=== PATIENT | male | born 1940 | race Caucasian/White ===

== ENCOUNTER 2019-02-15 11:02 | Inpatient (IN) | payer MEDICARE ==
[~2019-02-15] VITALS: Ht 180.3 cm; Wt 70.4 kg
[~2019-02-15 11:02] MED LIST: ASPI81TA52 PO; ATOR80TA PO; CALC1CAP13 PO; CHOL2000 PO; LOP25T PO; MULT-785 PO; OMEP-84 PO
[2019-02-15 11:47] LABS: BASOPHILS # (AUTO) 0.1 X10'3 (0-0.2); BASOPHILS % (AUTO) 0.7 % (0-1); EOSINOPHILS # (AUTO) 0.1 X10'3 (0-0.9); EOSINOPHILS % (AUTO) 1.6 % (0-6); HEMATOCRIT 51.5 % (42.0-52.0); HEMOGLOBIN 17.6 g/dl (14.0-17.9); LYMPHOCYTES # (AUTO) 2.2 X10'3 (1.1-4.8); LYMPHOCYTES % (AUTO) 23.4 % (21-51); MEAN CORPUSCULAR HEMOGLOBIN 32.6 PG (27.0-31.0); MEAN CORPUSCULAR HGB CONC 34.3 g/dL (33.0-36.5); MEAN CORPUSCULAR VOLUME 95.2 FL (78-98); MEAN PLATELET VOLUME 9.6 FL (7.4-10.4); MONOCYTES # (AUTO) 0.9 X10'3 (0-0.9); MONOCYTES % (AUTO) 9.5 % (2-12); NEUTROPHILS % (AUTO) 64.8 % (42-75); PLATELET COUNT 252 X10'3 (140-440); RED BLOOD COUNT 5.41 X10'6 (4.70-6.10); RED CELL DISTRIBUTION WIDTH 13.3 % (11.5-14.5); WHITE BLOOD COUNT 9.3 X10'3 (4.5-11.0)
[2019-02-15 11:57] LABS: ALANINE AMINOTRANSFERASE 26 U/L (12-78); ALBUMIN/GLOBULIN RATIO 1.1 (1.1-1.5); ALKALINE PHOSPHATASE 56 IU/L (46-116); ANION GAP 7 (8-16); ASPARTATE AMINO TRANSFERASE 23 U/L (10-37); BILIRUBIN,TOTAL 0.6 MG/DL (0.1-1.0); BLOOD UREA NITROGEN 9 MG/DL (7-18); BUN/CREATININE RATIO 7.3 (5.4-32.0); CALCIUM 9.5 MG/DL (8.5-10.1); CHLORIDE 106 MMOL/L (99-107); CREATININE 1.23 MG/DL (0.60-1.10); GLUCOSE 105 MG/DL (70-104); PARTIAL THROMBOPLASTIN TIME 31 SECONDS (22-32); POTASSIUM 4.3 MMOL/L (3.5-5.1); SODIUM 141 MMOL/L (135-145); TOTAL CARBON DIOXIDE 27.9 MMOL/L (24-32); TOTAL PROTEIN 7.7 G/DL (6.4-8.2); eGFR 57 ML/MIN
[2019-02-15] MEDS ORDERED: nitroGLYCERIN 0.4mg/hour patch TD ONE (12:50)
[2019-02-15] MEDS ORDERED: aspirin 81mg tab.chew PO ONE (12:50)
[2019-02-15] MEDS ORDERED: CYCL-1 PO (13:43)
[2019-02-15] MEDS ORDERED: CLOP75TA15 PO (13:43)
[2019-02-15] MEDS ORDERED: UBIQ100C3 PO (13:43)
[2019-02-15] MEDS ORDERED: FENO145T36 PO (13:43)
[2019-02-15] MEDS ORDERED: LISI2.5T2 PO (13:43)
--- NOTE | 2019-02-15 14:02 | NUR ---
call pt daughter at this no [phone] when pt has room assignment.
[2019-02-15] MEDS ORDERED: cyclobenzaprine 10mg tablet PO PRN (14:05)
[2019-02-15] MEDS: normal saline 1000ml 1,000 ML IV SCH (14:07)
[2019-02-15] MEDS ORDERED: aminophylline 250mg/10ml inj. IV PRN (14:10)
[2019-02-15] MEDS: K and/or MAG REPLACEMENT MC SCH (14:10)
[2019-02-15] MEDS ORDERED: magnesium hydroxide 30ml (MOM) UD suspension PO PRN (14:10)
[2019-02-15] MEDS ORDERED: potassium Cl 20 mEq SR tablet PO PRN ×2 (14:10)
[2019-02-15] MEDS ORDERED: diphenhydrAMINE 25mg capsule PO PRN (14:10)
[2019-02-15] MEDS ORDERED: acetaminophen 325mg tablet PO PRN ×2 (14:10)
[2019-02-15] MEDS ORDERED: magnesium 2GM in 50ml NS 50 ML IV PRN (14:10)
[2019-02-15] MEDS ORDERED: metoprolol tartrate 1mg/ml inj IV PRN (14:10)
[2019-02-15] MEDS ORDERED: morphine 2 MG/ML inj. syringe IV PRN ×2 (14:10)
[2019-02-15] MEDS ORDERED: nitroGLYCERIN 0.4mg SUBLingual tab SL PRN (14:10)
[2019-02-15] MEDS ORDERED: potassium CL 10mEq/100ml bag 100 ML IV PRN ×2 (14:10)
[2019-02-15] MEDS ORDERED: ondansetron/PF 4mg/2ml inj IV PRN (14:10)
[2019-02-15] MEDS ORDERED: HYDROcodone/acetaminophen 5mg/325mg tablet PO PRN (14:10)
[2019-02-15] MEDS ORDERED: HYDROcodone/acetaminophen 10/325mg tab PO PRN (14:10)
[2019-02-15] MEDS ORDERED: regadenoson 0.4mg/5ml syringe IV PRN (14:10)
[2019-02-15] MEDS ORDERED: mag hydrox/Alum hydrox/simeth 30ml oral suspension PO PRN (14:10)
[2019-02-15] MEDS ORDERED: bisacodyl 10mg suppository rectal RC PRN (14:10)
[2019-02-15] MEDS ORDERED: magnesium 4gm in 100ml NS 100 ML IV PRN (14:10)
[2019-02-15] MEDS ORDERED: magnesium Cl slow-release 64mg tablet PO PRN (14:10)
[2019-02-15 14:35] LABS: CLARITY,URINE CLEAR (Clear); COLOR,URINE YELLOW (Yellow); GLUCOSE, URINE NEGATIVE (Neg); KETONES,URINE NEGATIVE (Neg); LEUKOCYTE ESTERASE ,URINE NEGATIVE (Neg); NITRITES, URINE NEGATIVE (Neg); OCCULT BLOOD,URINE NEGATIVE (Neg); PROTEIN,URINE NEGATIVE (Neg); UROBILINOGEN,URINE 0.2 E.U/dL (0.2-1.0)
[2019-02-15 14:49] LABS: UA COLLECTION TYPE VOIDED
[2019-02-15 16:29] LABS: HEMOGLOBIN A1C 5.1 % (4.5-6.2)
[2019-02-15 17:15] VITALS: BP 126/71
--- NOTE | 2019-02-15 17:15 | NUR ---
Received report from Anna ALVARADO and patient admitted to [facility] [place]. Patient oriented to room and call light, 2 RN skin assessment done, vital signs taken. Patient is stable and has no complaints. Tele monitor initiated.
--- NOTE | 2019-02-15 18:33 | NUR ---
Problems reprioritized. Patient report given, questions answered & plan of care reviewed with Jose Roberto ALVARADO.
--- NOTE | 2019-02-15 18:44 | NUR ---
Patient in room PCU 3023. I have received report from Keysha ALVARADO and had the opportunity to ask questions and assume patient care.
[2019-02-15] MEDS: metoprolol tartrate 25mg tablet PO SCH (20:00)
[2019-02-15] MEDS: vitamin D (cholecalciferol) 1,000 unit tablet PO SCH (20:27)
[2019-02-15] MEDS: heparin, porcine 5000 units/ml vial SQ SCH (20:33)
[2019-02-15] MEDS ORDERED: atorvastatin 20mg tablet PO SCH (21:00)
[2019-02-15] MEDS ORDERED: temazepam 15mg capsule PO PRN (21:00)
[2019-02-15 22:00] VITALS: BP 121/86
[2019-02-16] VITALS (9 sets, daily range): BP systolic 130–150; BP diastolic 53–73
[2019-02-16] MEDS: normal saline 1000ml 1,000 ML IV SCH ×2 (02:29→10:07)
[2019-02-16 04:56] LABS: BASOPHILS % (AUTO) 0.4 % (0-1); EOSINOPHILS # (AUTO) 0.3 X10'3 (0-0.9); EOSINOPHILS % (AUTO) 2.7 % (0-6); HEMATOCRIT 42.3 % (42.0-52.0); HEMOGLOBIN 14.6 g/dl (14.0-17.9); LYMPHOCYTES # (AUTO) 2.7 X10'3 (1.1-4.8); LYMPHOCYTES % (AUTO) 28.3 % (21-51); MEAN CORPUSCULAR HEMOGLOBIN 33.4 PG (27.0-31.0); MEAN CORPUSCULAR HGB CONC 34.5 g/dL (33.0-36.5); MEAN CORPUSCULAR VOLUME 96.8 FL (78-98); MEAN PLATELET VOLUME 10.1 FL (7.4-10.4); MONOCYTES # (AUTO) 0.9 X10'3 (0-0.9); MONOCYTES % (AUTO) 9.8 % (2-12); NEUTROPHILS # (AUTO) 5.6 X10'3 (1.8-7.7); NEUTROPHILS % (AUTO) 58.8 % (42-75); PLATELET COUNT 176 X10'3 (140-440); RED BLOOD COUNT 4.37 X10'6 (4.70-6.10); WHITE BLOOD COUNT 9.5 X10'3 (4.5-11.0)
[2019-02-16 05:04] LABS: ANION GAP 6 (8-16); BILIRUBIN,TOTAL 0.4 MG/DL (0.1-1.0); BLOOD UREA NITROGEN 10 MG/DL (7-18); BUN/CREATININE RATIO 7.8 (5.4-32.0); CALCIUM 8.2 MG/DL (8.5-10.1); CHLORIDE 108 MMOL/L (99-107); CREATININE 1.28 MG/DL (0.60-1.10); GLUCOSE 93 MG/DL (70-104); MAGNESIUM 1.6 MG/DL (1.5-2.4); PHOSPHORUS 2.8 MG/DL (2.3-4.5); POTASSIUM 3.8 MMOL/L (3.5-5.1); SODIUM 141 MMOL/L (135-145); eGFR 55 ML/MIN
[2019-02-16 05:05] LABS: ALANINE AMINOTRANSFERASE 23 U/L (12-78); ALBUMIN 3.1 G/DL (3.4-5.0); ALBUMIN/GLOBULIN RATIO 1.1 (1.1-1.5); ALKALINE PHOSPHATASE 43 IU/L (46-116); ASPARTATE AMINO TRANSFERASE 22 U/L (10-37); CHOLESTEROL 167 MG/DL (0-200); HDL CHOLESTEROL 24 MG/DL (35-60); LDL CHOLESTEROL 101 MG/DL (50-100); TRIGLYCERIDES 391 MG/DL (20-135)
--- NOTE | 2019-02-16 06:13 | NUR ---
Patient in room PCU 3023. I have received report from CHRISTIANO Cid and had the opportunity to ask questions and assume patient care.
--- NOTE | 2019-02-16 06:16 | NUR ---
Problems reprioritized. Patient report given, questions answered & plan of care reviewed with Woodrow ALVARADO.
[2019-02-16] MEDS: K and/or MAG REPLACEMENT MC SCH (07:00)
[2019-02-16] MEDS: metoprolol tartrate 25mg tablet PO SCH (07:01)
[2019-02-16] MEDS ORDERED: pantoprazole 40mg Tablet.DR PO SCH (07:30)
[2019-02-16] MEDS ORDERED: clopidogrel 75mg tablet PO SCH (08:00)
[2019-02-16] MEDS ORDERED: nitroGLYCERIN 0.1mg/hour patch TD SCH (08:00)
[2019-02-16] MEDS ORDERED: fenofibrate 145mg tablet PO SCH (08:00)
[2019-02-16] MEDS ORDERED: non-formulary drug (Ubiquinol 100 MG) PO SCH (08:00)
[2019-02-16] MEDS ORDERED: multivitamins, therapeutics tablet PO SCH (08:00)
[2019-02-16] MEDS ORDERED: lisinopril 2.5mg tablet PO SCH (08:00)
[2019-02-16] MEDS ORDERED: aspirin 81mg tablet.DR PO SCH (08:00)
[2019-02-16] MEDS: heparin, porcine 5000 units/ml vial SQ SCH (11:09)
[2019-02-16] MEDS: vitamin D (cholecalciferol) 1,000 unit tablet PO SCH (11:09)
--- NOTE | 2019-02-16 11:35 | NUR ---
PAGER ID: [phone] MESSAGE: [id number] Narayan Thomas: Doesn't meet pulse rate parameters for Lopressor. Do you want it hold or do you want the parameters for pulse rate changed? CHRISTIANO Troy Ext [phone]
[2019-02-16] MEDS ORDERED: NITR0.4T51 SL (13:34)
--- NOTE | 2019-02-16 13:53 | NUR ---
Discharged. IV's taken out and tele taken off. Educated on meds, chest pain and follow-up. Medication called into [facility] on [address]. Stable for DC per MD.
[2019-02-16] MEDS ORDERED: calcium carbonate/vitamin D3 tablet PO SCH (20:00)
== END 2019-02-16 14:23 | disposition home or self-care (01) | DRG 313 ==
LOC: ER 11:02 → PCU 3S 17:12 → CMPBEDREQ 19:40
PROVIDERS: ADMIT Family Medicine; ATTEND Family Medicine
PROC: 4A02XM4 Measurement of Cardiac Total Activity, External Approach (ICD-10-PCS; principal; 2019-02-15)
PROC: 3E033HZ Introduction of Radioactive Substance into Peripheral Vein, Percutaneous Approach (ICD-10-PCS; 2019-02-15)
DX: R07.89 Other chest pain (principal); I25.10 Atherosclerotic heart disease of native coronary artery without angina pectoris; E78.1 Pure hyperglyceridemia; E78.5 Hyperlipidemia, unspecified; F10.10 Alcohol abuse, uncomplicated; F17.210 Nicotine dependence, cigarettes, uncomplicated; I10 Essential (primary) hypertension; J44.9 Chronic obstructive pulmonary disease, unspecified; K21.9 Gastro-esophageal reflux disease without esophagitis; N40.0 Benign prostatic hyperplasia without lower urinary tract symptoms; Z79.02 Long term (current) use of antithrombotics/antiplatelets; Z86.73 Personal history of transient ischemic attack (TIA), and cerebral infarction without residual deficits; Z95.5 Presence of coronary angioplasty implant and graft; Z71.6 Tobacco abuse counseling; Z71.41 Alcohol abuse counseling and surveillance of alcoholic
CPT/HCPCS: 36415; 71045; 78452; 80053; 80061; 81003; 83036; 83735; 84100; 84484; 85025; 85610; 85730; 87081; 93005; 93017; 93306; 99285; A9500; G0378; J1644; J2785; J7030

== ENCOUNTER 2019-03-23 20:10 | Emergency (ER) | payer MEDICARE ==
[~2019-03-23] VITALS: Ht 177.8 cm; Wt 76.9 kg
[~2019-03-23 20:10] MED LIST changes: +CLOP75TA15 PO; +CYCL-1 PO; +FENO145T36 PO; +LISI2.5T2 PO; +NITR0.4T51 SL; +UBIQ100C3 PO
[2019-03-23 20:44] LABS: BASOPHILS # (AUTO) 0.1 X10'3 (0-0.2); BASOPHILS % (AUTO) 0.6 % (0-1); EOSINOPHILS # (AUTO) 0.1 X10'3 (0-0.9); EOSINOPHILS % (AUTO) 1.4 % (0-6); HEMATOCRIT 44.5 % (42.0-52.0); HEMOGLOBIN 15.4 g/dl (14.0-17.9); LYMPHOCYTES # (AUTO) 2.4 X10'3 (1.1-4.8); MEAN CORPUSCULAR HEMOGLOBIN 33.5 PG (27.0-31.0); MEAN CORPUSCULAR HGB CONC 34.7 g/dL (33.0-36.5); MEAN CORPUSCULAR VOLUME 96.4 FL (78-98); MEAN PLATELET VOLUME 10.5 FL (7.4-10.4); MONOCYTES % (AUTO) 9.5 % (2-12); NEUTROPHILS # (AUTO) 6.9 X10'3 (1.8-7.7); NEUTROPHILS % (AUTO) 65.5 % (42-75); PLATELET COUNT 182 X10'3 (140-440); RED BLOOD COUNT 4.62 X10'6 (4.70-6.10); RED CELL DISTRIBUTION WIDTH 13.2 % (11.5-14.5); WHITE BLOOD COUNT 10.6 X10'3 (4.5-11.0)
[2019-03-23 20:54] LABS: PARTIAL THROMBOPLASTIN TIME 29 SECONDS (22-32)
[2019-03-23 20:57] LABS: ALANINE AMINOTRANSFERASE 36 U/L (12-78); ALBUMIN/GLOBULIN RATIO 0.9 (1.1-1.5); ALKALINE PHOSPHATASE 72 IU/L (46-116); ANION GAP 14 (8-16); ASPARTATE AMINO TRANSFERASE 25 U/L (10-37); BILIRUBIN,TOTAL 0.3 MG/DL (0.1-1.0); BLOOD UREA NITROGEN 7 MG/DL (7-18); BUN/CREATININE RATIO 6.6 (5.4-32.0); CALCIUM 7.6 MG/DL (8.5-10.1); CHLORIDE 110 MMOL/L (99-107); CREATININE 1.06 MG/DL (0.60-1.10); GLUCOSE 109 MG/DL (70-104); POTASSIUM 3.1 MMOL/L (3.5-5.1); SODIUM 144 MMOL/L (135-145); TOTAL CARBON DIOXIDE 20.5 MMOL/L (24-32); TOTAL PROTEIN 6.2 G/DL (6.4-8.2); eGFR 68 ML/MIN
[2019-03-23] MEDS ORDERED: POTASSIUM BICARB 20meq eff tab 20 MEQ TABLET.EFF PO ONE (21:05)
[2019-03-23 21:14] LABS: LARGE PLATELETS FEW; PLATELET ESTIMATE NORMAL
[2019-03-23 21:17] LABS: ETHANOL < 0.010 GM/DL (0.0-0.010)
--- NOTE | 2019-03-23 21:22 | NUR ---
Primary CHRISTIANO Lopez and Dr. Alegria notified of orthostatic vitals results.
[2019-03-24 02:16] VITALS: BP 137/74
== END 2019-03-24 02:42 | disposition home or self-care (01) ==
LOC: ER 20:10
DX: I95.1 Orthostatic hypotension (principal); I25.10 Atherosclerotic heart disease of native coronary artery without angina pectoris; N40.0 Benign prostatic hyperplasia without lower urinary tract symptoms; F17.200 Nicotine dependence, unspecified, uncomplicated; Z79.82 Long term (current) use of aspirin; Z79.899 Other long term (current) drug therapy
CPT/HCPCS: 36415; 71045; 80053; 80320; 84484; 85025; 85610; 85730; 93005; 99284

== ENCOUNTER 2019-04-19 19:51 | Emergency (ER) | payer MEDICARE ==
[~2019-04-19] VITALS: Ht 175.3 cm; Wt 71.0 kg
[2019-04-19] MEDS ORDERED: normal saline 1000ML IV soln IV ONE (19:55)
--- NOTE | 2019-04-19 19:55 | NUR ---
per patient it is okay to release information to his daughter shefali carpenter cell #[phone]
[2019-04-19] MEDS ORDERED: normal saline 1000ML IV soln IVB ONE (20:00)
[2019-04-19 20:08] LABS: BASOPHILS # (AUTO) 0.1 X10'3 (0-0.2); EOSINOPHILS # (AUTO) 0.5 X10'3 (0-0.9); EOSINOPHILS % (AUTO) 4.9 % (0-6); HEMATOCRIT 44.4 % (42.0-52.0); HEMOGLOBIN 15.3 g/dl (14.0-17.9); LYMPHOCYTES # (AUTO) 3.2 X10'3 (1.1-4.8); LYMPHOCYTES % (AUTO) 31.3 % (21-51); MEAN CORPUSCULAR HEMOGLOBIN 33.7 PG (27.0-31.0); MEAN CORPUSCULAR HGB CONC 34.4 g/dL (33.0-36.5); MEAN CORPUSCULAR VOLUME 97.9 FL (78-98); MONOCYTES % (AUTO) 9.6 % (2-12); NEUTROPHILS # (AUTO) 5.5 X10'3 (1.8-7.7); NEUTROPHILS % (AUTO) 53.2 % (42-75); PLATELET COUNT 182 X10'3 (140-440); RED BLOOD COUNT 4.54 X10'6 (4.70-6.10); WHITE BLOOD COUNT 10.4 X10'3 (4.5-11.0)
[2019-04-19 20:23] LABS: ALANINE AMINOTRANSFERASE 28 U/L (12-78); ALBUMIN 3.4 G/DL (3.4-5.0); ALKALINE PHOSPHATASE 77 IU/L (46-116); ANION GAP 8 (8-16); ASPARTATE AMINO TRANSFERASE 19 U/L (10-37); BILIRUBIN,TOTAL 0.2 MG/DL (0.1-1.0); BLOOD UREA NITROGEN 9 MG/DL (7-18); BUN/CREATININE RATIO 7.9 (5.4-32.0); CHLORIDE 110 MMOL/L (99-107); CREATININE 1.14 MG/DL (0.60-1.10); GLUCOSE 74 MG/DL (70-104); POTASSIUM 3.8 MMOL/L (3.5-5.1); SODIUM 143 MMOL/L (135-145); TOTAL CARBON DIOXIDE 25.1 MMOL/L (24-32); TOTAL PROTEIN 6.8 G/DL (6.4-8.2); eGFR 62 ML/MIN
[2019-04-19 20:30] LABS: MAGNESIUM 1.7 MG/DL (1.5-2.4); TROPONIN I < 0.04 NG/ML (0.0-0.05)
[2019-04-19 21:06] VITALS: BP 145/73
[2019-04-20] MEDS ORDERED: CITA20TA28 PO (06:18)
[2019-04-20] MEDS ORDERED: FLO0.4C PO (06:18)
[2019-04-20] MEDS ORDERED: verapamil 2.5 mg/ml inj IV ONE (07:40)
[2019-04-20] MEDS ORDERED: fentaNYL/PF 50MCG/1 ML 2ML syringe ONE (07:40)
[2019-04-20] MEDS ORDERED: nitroGLYCERIN-Tridil 50MG/D5W 250 ML IV ONE (07:40)
[2019-04-20] MEDS ORDERED: midazolam 2 mg/2 ml injection ONE (07:40)
[2019-04-20] MEDS ORDERED: LIDOcaine 1% (10mg/ml)w/preservative injection 20ml MDV ONE (07:41)
[2019-04-20] MEDS ORDERED: heparin 1,000unit/ml 10ml vial 10 ML ONE (07:41)
[2019-04-20] MEDS ORDERED: iohexol 350MG/ML 100ml bottle IV ONE (07:41)
[2019-04-20] MEDS ORDERED: iohexol 350 MG/ML 50ML vial IV ONE (07:41)
== END 2019-04-19 21:05 | disposition home or self-care (01) ==
LOC: ER 19:52
DX: R42 Dizziness and giddiness (principal); R55 Syncope and collapse; I25.10 Atherosclerotic heart disease of native coronary artery without angina pectoris; I25.2 Old myocardial infarction; F10.99 Alcohol use, unspecified with unspecified alcohol-induced disorder; Z87.891 Personal history of nicotine dependence; Z79.84 Long term (current) use of oral hypoglycemic drugs; Y90.9 Presence of alcohol in blood, level not specified
CPT/HCPCS: 36415; 71045; 80053; 83735; 83880; 84484; 85025; 85610; 93005; 99284; J7030; J1644; J2001; J2250; J3010; J3490; Q9967

== ENCOUNTER 2019-04-20 05:30 | Day surgery (SDC) | payer MEDICARE ==
[2019-04-19 12:08] LABS: BASOPHILS # (AUTO) 0.1 X10'3 (0-0.2); BASOPHILS % (AUTO) 0.8 % (0-1); EOSINOPHILS # (AUTO) 0.5 X10'3 (0-0.9); EOSINOPHILS % (AUTO) 5.2 % (0-6); HEMATOCRIT 49.2 % (42.0-52.0); HEMOGLOBIN 16.9 g/dl (14.0-17.9); LYMPHOCYTES # (AUTO) 2.1 X10'3 (1.1-4.8); LYMPHOCYTES % (AUTO) 20.1 % (21-51); MEAN CORPUSCULAR HEMOGLOBIN 33.4 PG (27.0-31.0); MEAN CORPUSCULAR HGB CONC 34.3 g/dL (33.0-36.5); MEAN CORPUSCULAR VOLUME 97.1 FL (78-98); MEAN PLATELET VOLUME 10.2 FL (7.4-10.4); MONOCYTES # (AUTO) 0.9 X10'3 (0-0.9); MONOCYTES % (AUTO) 8.4 % (2-12); NEUTROPHILS % (AUTO) 65.5 % (42-75); PLATELET COUNT 216 X10'3 (140-440); RED BLOOD COUNT 5.06 X10'6 (4.70-6.10); RED CELL DISTRIBUTION WIDTH 13.1 % (11.5-14.5); WHITE BLOOD COUNT 10.6 X10'3 (4.5-11.0)
[2019-04-19 12:23] LABS: ALBUMIN 3.7 G/DL (3.4-5.0); ANION GAP 7 (8-16); BLOOD UREA NITROGEN 10 MG/DL (7-18); BUN/CREATININE RATIO 9.1 (5.4-32.0); CALCIUM 8.9 MG/DL (8.5-10.1); CHLORIDE 106 MMOL/L (99-107); GLUCOSE 113 MG/DL (70-104); POTASSIUM 4.2 MMOL/L (3.5-5.1); SODIUM 140 MMOL/L (135-145); TOTAL CARBON DIOXIDE 26.8 MMOL/L (24-32); eGFR 65 ML/MIN
[2019-04-19 12:24] LABS: PARTIAL THROMBOPLASTIN TIME 32 SECONDS (22-32)
[2019-04-20] VITALS (11 sets, daily range): BP systolic 142–169; BP diastolic 62–97
[~2019-04-20] VITALS: Ht 175.3 cm; Wt 70.3 kg
[2019-04-20] MEDS ORDERED: diphenhydrAMINE 25mg capsule PO PRN (06:00)
[2019-04-20] MEDS ORDERED: LORazepam 0.5 MG tablet PO PRN (06:00)
[2019-04-20] MEDS ORDERED: LIDOcaine/PRILOcaine 5gm cream TP ONE (06:00)
[2019-04-20] MEDS ORDERED: normal saline 1,000 ML IV SCH (06:00)
[2019-04-20] MEDS ORDERED: FLO0.4C PO (06:18)
[2019-04-20] MEDS ORDERED: CITA20TA28 PO (06:18)
[2019-04-20] MEDS ORDERED: FLU VACC QS 2019-20 (6 MOS UP) 60 MCG/0.5 ML VIAL IMVAC ONE (08:00)
[2019-04-20] MEDS ORDERED: heparin 25,000 UNIT/250ml bag 250 ML IV ONE (08:38)
[2019-04-20] MEDS ORDERED: iohexol 350MG/ML 100ml bottle IV ONE (08:38)
[2019-04-20 09:01] LABS: ISTAT HGB ART 14.6 g/dl (14.0-18.0); ISTAT Hct ART 43 %PCV (42-52); ISTAT O2 SATURATION ARTERIAL 92 % (95-98); ISTAT SOURCE ART
[2019-04-20 09:01] LABS: ISTAT Hct MIX 42 %PCV (42-52); ISTAT O2 SATURATION MIX VENOUS 63 % (60-80); ISTAT SOURCE MIX
[2019-04-20] MEDS ORDERED: normal saline 1000ml 1,000 ML IV ONE (10:05)
== END 2019-04-20 14:05 | disposition home or self-care (01) ==
LOC: SSTAY O 05:30
PROVIDERS: ATTEND Internal Medicine Cardiovascular Disease
DX: R94.39 Abnormal result of other cardiovascular function study (principal); I25.10 Atherosclerotic heart disease of native coronary artery without angina pectoris; I10 Essential (primary) hypertension; E78.5 Hyperlipidemia, unspecified; K21.9 Gastro-esophageal reflux disease without esophagitis; F10.10 Alcohol abuse, uncomplicated; F17.210 Nicotine dependence, cigarettes, uncomplicated; Z86.73 Personal history of transient ischemic attack (TIA), and cerebral infarction without residual deficits; Z79.01 Long term (current) use of anticoagulants; Z79.899 Other long term (current) drug therapy; Z95.5 Presence of coronary angioplasty implant and graft; Z23 Encounter for immunization
CPT/HCPCS: 36415; 80048; 82803; 85014; 85025; 85610; 85730; 93460; 99152; 99153; C1769; C1894; G0008; J1644; J7030; Q0163; Q2037; Q9967; A4620; A6258

== ENCOUNTER 2019-04-25 11:11 | Outpatient (CLI) | payer MEDICARE ==
[2019-04-25] VITALS (22 sets, daily range): BP systolic 94–135; BP diastolic 42–98
[~2019-04-25 11:11] MED LIST changes: -ASPI81TA52 PO; -CALC1CAP13 PO; -CHOL2000 PO; +CITA20TA28 PO; -CYCL-1 PO; +FLO0.4C PO; -MULT-785 PO; -OMEP-84 PO; -UBIQ100C3 PO
== END 2019-04-25 23:59 | disposition home or self-care (01) ==
LOC: CARD DIAG 11:11
PROVIDERS: ATTEND Internal Medicine Cardiovascular Disease
DX: R55 Syncope and collapse (principal); I10 Essential (primary) hypertension; J44.9 Chronic obstructive pulmonary disease, unspecified; I25.2 Old myocardial infarction; F17.200 Nicotine dependence, unspecified, uncomplicated
CPT/HCPCS: 93660

== ENCOUNTER 2020-07-08 15:42 | Inpatient (IN) | payer BC, MEDICARE ==
[~2020-07-08] VITALS: Ht 180.3 cm; Wt 72.0 kg
[~2020-07-08 15:42] MED LIST changes: +FENO145T26 PO; -FENO145T36 PO
[2020-07-08] MEDS ORDERED: normal saline 1000ML IV soln IVB ONE (16:00)
[2020-07-08 16:12] LABS: CLARITY,URINE CLEAR (Clear); COLOR,URINE STRAW (Yellow); GLUCOSE, URINE NEGATIVE (Neg); KETONES,URINE NEGATIVE (Neg); LEUKOCYTE ESTERASE ,URINE NEGATIVE (Neg); NITRITES, URINE NEGATIVE (Neg); OCCULT BLOOD,URINE NEGATIVE (Neg); PH,URINE 6.5 (4.8-8.0); PROTEIN,URINE NEGATIVE (Neg); UROBILINOGEN,URINE 0.2 E.U/dL (0.2-1.0)
[2020-07-08 16:18] LABS: URINE AMPHETAMINE SCREEN NEGATIVE (Neg); URINE BARBITUATE SCREEN NEGATIVE (Neg); URINE BENZODIAZEPINES SCREEN NEGATIVE (Neg); URINE CANNABINOID SCREEN NEGATIVE (Neg); URINE COCAINE SCREEN NEGATIVE (Neg); URINE METHADONE SCREEN NEGATIVE (Neg); URINE OPIATE SCREEN NEGATIVE (Neg); URINE PHENCYCLIDINE SCREEN NEGATIVE (Neg)
[2020-07-08 16:19] LABS: BASOPHILS # (AUTO) 0.2 X10'3 (0-0.2); EOSINOPHILS # (AUTO) 0.1 X10'3 (0-0.9); EOSINOPHILS % (AUTO) 0.6 % (0-6); HEMATOCRIT 47.7 % (42.0-52.0); HEMOGLOBIN 16.3 g/dl (14.0-17.9); LYMPHOCYTES # (AUTO) 1.3 X10'3 (1.1-4.8); LYMPHOCYTES % (AUTO) 13.3 % (21-51); MEAN CORPUSCULAR HEMOGLOBIN 33.8 PG (27.0-31.0); MEAN CORPUSCULAR HGB CONC 34.1 g/dL (33.0-36.5); MEAN CORPUSCULAR VOLUME 99.1 FL (78-98); MEAN PLATELET VOLUME 10.1 FL (7.4-10.4); MONOCYTES # (AUTO) 0.6 X10'3 (0-0.9); MONOCYTES % (AUTO) 6.3 % (2-12); NEUTROPHILS # (AUTO) 7.6 X10'3 (1.8-7.7); NEUTROPHILS % (AUTO) 77.8 % (42-75); PLATELET COUNT 196 X10'3 (140-440); RED BLOOD COUNT 4.81 X10'6 (4.70-6.10); RED CELL DISTRIBUTION WIDTH 12.7 % (11.5-14.5); WHITE BLOOD COUNT 9.8 X10'3 (4.5-11.0)
[2020-07-08 16:24] LABS: UA COLLECTION TYPE CLN CATCH MIDSTREAM
[2020-07-08 16:33] LABS: ALANINE AMINOTRANSFERASE 25 U/L (12-78); ALBUMIN 3.6 G/DL (3.4-5.0); ALKALINE PHOSPHATASE 67 IU/L (46-116); ANION GAP 9 (8-16); ASPARTATE AMINO TRANSFERASE 29 U/L (10-37); BILIRUBIN,TOTAL 0.4 MG/DL (0.1-1.0); BLOOD UREA NITROGEN 8 MG/DL (7-18); BUN/CREATININE RATIO 7.2 (5.4-32.0); CALCIUM 8.8 MG/DL (8.5-10.1); CHLORIDE 105 MMOL/L (99-107); CREATININE 1.11 MG/DL (0.60-1.10); GLUCOSE 86 MG/DL (70-104); POTASSIUM 4.2 MMOL/L (3.5-5.1); SODIUM 141 MMOL/L (135-145); TOTAL CARBON DIOXIDE 26.6 MMOL/L (24-32); TOTAL PROTEIN 7.1 G/DL (6.4-8.2); eGFR 64 ML/MIN
[2020-07-08 16:36] LABS: TROPONIN I < 0.04 NG/ML (0.0-0.05)
[2020-07-08 16:37] LABS: ETHANOL < 0.010 GM/DL (0.0-0.010)
[2020-07-08] MEDS ORDERED: iohexol 350MG/ML 100ml bottle IV ONE (16:41)
[2020-07-08] MEDS ORDERED: mag hydrox/Alum hydrox/simeth 30ml oral suspension PO PRN (17:15)
[2020-07-08] MEDS ORDERED: magnesium hydroxide 30ml (MOM) UD suspension PO PRN (17:15)
[2020-07-08] MEDS ORDERED: acetaminophen 325mg tablet PO PRN (17:15)
[2020-07-08] MEDS ORDERED: ondansetron/PF 4mg/2ml inj IV PRN (17:15)
[2020-07-08] MEDS ORDERED: aspirin 81mg tab.chew PO ONE (17:20)
[2020-07-08] MEDS: normal saline 1000ml 1,000 ML IV SCH (17:34)
[2020-07-08 17:40] LABS: CHOL/HDL RATIO 4.9 (0.00-4.99); CHOLESTEROL 162 MG/DL (0-200); HDL CHOLESTEROL 33 MG/DL (35-60); LDL CHOLESTEROL 87 MG/DL (50-100); TRIGLYCERIDES 261 MG/DL (20-135)
[2020-07-08] MEDS: metoprolol tartrate 25mg tablet PO SCH (20:49)
[2020-07-08] MEDS: heparin, porcine 5000 units/ml vial SQ SCH (20:49)
[2020-07-08] MEDS ORDERED: atorvastatin 20mg tablet PO SCH (21:00)
--- NOTE | 2020-07-08 21:39 | NUR ---
Received report from Cindy ALVARADO in ER. Awaiting patient arrival.
--- NOTE | 2020-07-08 21:45 | NUR ---
Report recieved from Sherlyn ALVARADO
[2020-07-08 22:10] VITALS: BP 162/91
--- NOTE | 2020-07-08 22:10 | NUR ---
pt to floor
--- NOTE | 2020-07-08 22:30 | NUR ---
pt gave permission to speak w/ daughter whom he lives with in [place]. He socrates she will for sure call vishal, daily
--- NOTE | 2020-07-09 00:30 | NUR ---
spoke with pts daughter Cortney, gave pdate- She states father has many health concerns & she would like answers. Expl diff between acute care & PCP- She is nice, lives w/ him & helps to care for him- she expressed that she experiences stress r/t his needs & health status
[2020-07-09 02:00] VITALS: BP 117/83
[2020-07-09] MEDS: normal saline 1000ml 1,000 ML IV SCH ×2 (03:15→08:59)
--- NOTE | 2020-07-09 05:46 | NUR ---
per tele report, pt just had 32 beat run of PAT's. Called Hospitalist & informed-Rec replace Na+ &/or K+ if necessary, no other orders at this time.
--- NOTE | 2020-07-09 06:22 | NUR ---
Problems reprioritized. Patient report given, questions answered & plan of care reviewed with Dorie ALVARADO.
[2020-07-09 06:34] LABS: BASOPHILS # (AUTO) 0.1 X10'3 (0-0.2); BASOPHILS % (AUTO) 0.6 % (0-1); HEMATOCRIT 45.6 % (42.0-52.0); LYMPHOCYTES # (AUTO) 2.6 X10'3 (1.1-4.8); MEAN CORPUSCULAR HEMOGLOBIN 33.9 PG (27.0-31.0); MEAN CORPUSCULAR HGB CONC 34.1 g/dL (33.0-36.5); MEAN PLATELET VOLUME 10.3 FL (7.4-10.4)
[2020-07-09 06:37] LABS: EOSINOPHILS # (AUTO) 0.2 X10'3 (0-0.9); EOSINOPHILS % (AUTO) 2.7 % (0-6); HEMOGLOBIN 15.6 g/dl (14.0-17.9); LYMPHOCYTES % (AUTO) 27.9 % (21-51); MEAN CORPUSCULAR VOLUME 99.2 FL (78-98); MONOCYTES # (AUTO) 0.9 X10'3 (0-0.9); MONOCYTES % (AUTO) 9.4 % (2-12); NEUTROPHILS # (AUTO) 5.5 X10'3 (1.8-7.7); NEUTROPHILS % (AUTO) 59.4 % (42-75); PLATELET COUNT 187 X10'3 (140-440); RED CELL DISTRIBUTION WIDTH 12.4 % (11.5-14.5); WHITE BLOOD COUNT 9.2 X10'3 (4.5-11.0)
--- NOTE | 2020-07-09 06:40 | NUR ---
Patient in room PCU 3015. I have received report from CHRISTIANO Milian and had the opportunity to ask questions and assume patient care.
[2020-07-09 06:46] LABS: ALBUMIN 3.2 G/DL (3.4-5.0); ANION GAP 8 (8-16); BLOOD UREA NITROGEN 9 MG/DL (7-18); BUN/CREATININE RATIO 7.7 (5.4-32.0); CALCIUM 8.8 MG/DL (8.5-10.1); CHLORIDE 108 MMOL/L (99-107); CREATININE 1.17 MG/DL (0.60-1.10); GLUCOSE 90 MG/DL (70-104); POTASSIUM 4.3 MMOL/L (3.5-5.1); SODIUM 142 MMOL/L (135-145); TOTAL CARBON DIOXIDE 25.7 MMOL/L (24-32); eGFR 60 ML/MIN
[2020-07-09 07:00] VITALS: BP 164/83
[2020-07-09] MEDS ORDERED: fenofibrate 145mg tablet PO SCH (08:00)
[2020-07-09] MEDS ORDERED: lisinopril 2.5mg tablet PO SCH (08:00)
[2020-07-09] MEDS ORDERED: citalopram 20mg tablet PO SCH (08:00)
[2020-07-09] MEDS ORDERED: clopidogrel 75mg tablet PO SCH (08:00)
[2020-07-09] MEDS ORDERED: tamsulosin 0.4mg capsule PO SCH (08:00)
[2020-07-09] MEDS ORDERED: aspirin 81mg tablet.DR PO SCH (08:00)
[2020-07-09 08:51] VITALS: BP_SYST 164
[2020-07-09] MEDS: metoprolol tartrate 25mg tablet PO SCH (08:51)
[2020-07-09] MEDS: heparin, porcine 5000 units/ml vial SQ SCH (08:51)
[2020-07-09] MEDS ORDERED: MECL-226 PO (11:12)
--- NOTE | 2020-07-09 12:42 | NUR ---
Patient stable for discharge per MD order. All discharge instructions reviewed with patient and all questions answered. PIV discontinued, cannula intact. Telemetry discontinued, telehealth nurse notified. New prescriptions faxed to pharmacy. All belongings collected and sent with patient. Patient picked up by family in private vehicle, wheeled to lobby by staff.
== END 2020-07-09 12:15 | disposition home or self-care (01) | DRG 69 ==
LOC: ER 15:43 → ED HOLD 17:14 → PCU 3S 22:02
PROVIDERS: ADMIT Family Medicine; ATTEND Family Medicine
DX: G45.9 Transient cerebral ischemic attack, unspecified (principal); E78.5 Hyperlipidemia, unspecified; F17.210 Nicotine dependence, cigarettes, uncomplicated; I10 Essential (primary) hypertension; I25.10 Atherosclerotic heart disease of native coronary artery without angina pectoris; R40.0 Somnolence; N40.0 Benign prostatic hyperplasia without lower urinary tract symptoms; I25.2 Old myocardial infarction; Z79.899 Other long term (current) drug therapy
CPT/HCPCS: 36415; 70450; 70496; 70498; 70544; 70551; 71045; 80048; 80053; 80061; 80305; 80320; 81003; 84484; 85025; 87081; 92508; 92616; 93005; 93306; 93308; 93880; 97161; 99285; G0378; J1644; J7030; Q9967